=== PATIENT | male | born 1995 | race African-American/Black ===

== ENCOUNTER 2017-06-27 13:51 | Emergency (ER) | payer OTHER ==
[~2017-06-27] VITALS: Ht 180.3 cm; Wt 74.8 kg
[2017-06-27 13:54] VITALS: BP 119/73
[2017-06-27] MEDS ORDERED: levETIRAcetam 500mg/NS100ml 100 ML IVPB ONE (14:00)
[2017-06-27] MEDS ORDERED: LORazepam Inj 2mg/ml 1ml IV ONE (14:00)
--- NOTE | 2017-06-27 14:16 | Emergency Room Report ---
History of Present Illness General Chief Complaint: Seizure Source: Patient Present Illness HPI The patient was brought by patient services rep ambulance after having a witnessed seizure. This was witnessed by a roommate. There is no head trauma. Paramedics state there was mouth trauma, that occurred during the seizure. Apparently he is supposed to be taking Keppra but stopped 3-4 months ago. He just stopped taking it. He was not advised to do so. The patient denies any fevers, headache, nausea, vomiting, diarrhea, rashes, neck stiffness, joint pain, spinal pain or weakness. Paramedics state that the patient was postictal when they arrived initially, but the patient is clearing. Accu-Chek was normal in the field. Allergies: Coded Allergies: No Known Allergies (Unverified , 06/27/17) Patient History Past Medical History: see triage record Social History: Denies: smoking Social History Narrative with room mate Reviewed Nursing Documentation: PMH: Agreed, PSxH: Agreed Nursing Documentation-PMH Past Medical History: No History, Except For Hx Seizures: Yes Review of Systems All Other Systems: negative except mentioned in HPI Physical Exam Vital Signs Date Time Temp Pulse Resp B/P (MAP) Pulse Ox O2 Delivery O2 Flow Rate FiO2 06/27/17 13:44 99.0 110 20 120/67 98 Room Air Sp02 EP Interpretation: reviewed, normal General Appearance: well appearing, no apparent distress, GCS 15 Head: normocephalic Eyes: bilateral eye normal inspection, bilateral eye PERRL, bilateral eye EOMI ENT: moist mucus membranes - small tongue maceration L lateral tongue Neck: supple Respiratory: lungs clear, normal breath sounds Cardiovascular #1: regular rate, rhythm Cardiovascular #2: 2+ radial (R) Gastrointestinal: normal inspection, normal bowel sounds, non tender, no mass, non-distended Musculoskeletal: back normal, gait/station normal, normal range of motion Neurologic: alert, oriented x3, 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 The patient will be evaluated here. CT is not indicated. Chest x-ray EKG and labs are indicated. In addition the patient will receive IV and Ativan to prevent further seizures here. EKG, CXR and labs unremarkable. Patient cleared and was ambulatory. Mother here and questions answered. DMV form completed and patient advised not to drive until cleared by MD. Patient stable for outpatient observation and treatment. Laboratory Tests Test 06/27/17 14:00 06/27/17 14:10 White Blood Count 7.7 K/UL (4.8-10.8) Red Blood Count 5.34 M/UL (4.70-6.10) Hemoglobin 14.6 G/DL (14.2-18.0) Hematocrit 46.1 % (42.0-52.0) Mean Corpuscular Volume 86 FL (80-99) Mean Corpuscular Hemoglobin 27.4 PG (27.0-31.0) Mean Corpuscular Hemoglobin Concent 31.7 G/DL (32.0-36.0) L Red Cell Distribution Width 11.0 % (11.6-14.8) L Platelet Count 228 K/UL (150-450) Mean Platelet Volume 6.2 FL (6.5-10.1) L Neutrophils (%) (Auto) 57.3 % (45.0-75.0) Lymphocytes (%) (Auto) 36.2 % (20.0-45.0) Monocytes (%) (Auto) 4.6 % (1.0-10.0) Eosinophils (%) (Auto) 0.7 % (0.0-3.0) Basophils (%) (Auto) 1.2 % (0.0-2.0) Sodium Level 136 MMOL/L (136-145) Potassium Level 4.6 MMOL/L (3.5-5.1) Chloride Level 102 MMOL/L (98-107) Carbon Dioxide Level 23 MMOL/L (21-32) Anion Gap 11 mmol/L (5-15) Blood Urea Nitrogen 14 mg/dL (7-18) Creatinine 1.2 MG/DL (0.55-1.30) Estimate Glomerular Filtration Rate > 60 mL/min (>60) Glucose Level 112 MG/DL (74-106) H Calcium Level 8.8 MG/DL (8.5-10.1) Total Bilirubin 0.3 MG/DL (0.2-1.0) Aspartate Amino Transferase (AST) 16 U/L (15-37) Alanine Aminotransferase (ALT) 11 U/L (12-78) L Alkaline Phosphatase 103 U/L (46-116) Total Creatine Kinase 271 U/L (26-308) Total Protein 8.1 G/DL (6.4-8.2) Albumin 3.9 G/DL (3.4-5.0) Globulin 4.2 g/dL Albumin/Globulin Ratio 0.9 (1.0-2.7) L Serum Alcohol < 3 mg/dL Urine Color Pale yellow Urine Appearance Clear Urine pH 8 (4.5-8.0) Urine Specific [place] 1.015 (1.005-1.035) Urine Protein 1+ (NEGATIVE) H Urine Glucose (UA) Negative (NEGATIVE) Urine Ketones 1+ (NEGATIVE) H Urine Occult Blood Negative (NEGATIVE) Urine Nitrite Negative (NEGATIVE) Urine Bilirubin Negative (NEGATIVE) Urine Urobilinogen Normal MG/DL (0.0-1.0) Urine Leukocyte Esterase Negative (NEGATIVE) Urine RBC 0 /HPF (0 - 0) Urine WBC 0-2 /HPF (0 - 0) Urine Squamous Epithelial Cells Occasional /LPF Urine Bacteria None /HPF (NONE) Urine Opiates Screen Negative (NEGATIVE) Urine Barbiturates Screen Negative (NEGATIVE) Phencyclidine (PCP) Screen Negative (NEGATIVE) Urine Amphetamines Screen Negative (NEGATIVE) Urine Benzodiazepines Screen Negative (NEGATIVE) Urine Cocaine Screen Negative (NEGATIVE) Urine Marijuana (THC) Screen Negative (NEGATIVE) EKG Diagnostic Results Rate: normal Rhythm: NSR ST Segments: no acute changes Rhythm Strip Diag. Results EP Interpretation: yes Rhythm: NSR, no PVC's, no ectopy Chest X-Ray Diagnostic Results Chest X-Ray Diagnostic Results : Chest X-Ray Ordered: Yes # of Views/Limited/Complete: 1 View Indication: Other Interpretation: no consolidation, no effusion, no pneumothorax, no acute cardiopulmonary disease Impression: No acute disease Electronically Signed by: Electronically signed by Oscar Grace MD Last Vital Signs Date Time Temp Pulse Resp B/P (MAP) Pulse Ox O2 Delivery O2 Flow Rate FiO2 06/27/17 15:50 99.0 64 17 121/75 100 Room Air Status: improved Disposition: HOME, SELF-CARE Condition: Improved Scripts Levetiracetam (Keppra) 250 Mg Tablet 500 MG ORAL EVERY 12 HOURS, #60 TAB 0 Refills Prov: Oscar Grace M.D. 06/27/17 Oscar Grace M.D. Jun 27, 2017 14:15
[2017-06-27 14:30] LABS: BASOPHILS % (AUTO) 1.2 % (0.0-2.0); EOSINOPHILS % (AUTO) 0.7 % (0.0-3.0); LYMPHOCYTES % (AUTO) 36.2 % (20.0-45.0); MEAN CORPUSCULAR HEMOGLOBIN 27.4 PG (27.0-31.0); MEAN CORPUSCULAR HGB CONC 31.7 G/DL (32.0-36.0); MEAN CORPUSCULAR VOLUME 86 FL (80-99); MEAN PLATELET VOLUME 6.2 FL (6.5-10.1); MONOCYTES % (AUTO) 4.6 % (1.0-10.0); NEUTROPHILS % (AUTO) 57.3 % (45.0-75.0); PLATELET COUNT 228 K/UL (150-450); RED BLOOD COUNT 5.34 M/UL (4.70-6.10); WHITE BLOOD COUNT 7.7 K/UL (4.8-10.8)
[2017-06-27 14:38] LABS: ANION GAP 11 mmol/L (5-15); CALCIUM 8.8 MG/DL (8.5-10.1); CARBON DIOXIDE 23 MMOL/L (21-32); CHLORIDE 102 MMOL/L (98-107); CREATININE 1.2 MG/DL (0.55-1.30); GLOMERULAR FILTRATION RATE > 60 mL/min (>60); POTASSIUM 4.6 MMOL/L (3.5-5.1); SODIUM 136 MMOL/L (136-145)
[2017-06-27 14:39] LABS: APPEARANCE,URINE CLEAR; KETONES,URINE 1+ (NEGATIVE); LEUKOCYTE ESTERASE ,URINE NEGATIVE (NEGATIVE); NITRITE,URINE NEGATIVE (NEGATIVE); PH,URINE 8 (4.5-8.0); PROTEIN,URINE 1+ (NEGATIVE); UROBILINOGEN,URINE NORMAL MG/DL (0.0-1.0)
[2017-06-27 14:42] LABS: ALANINE AMINOTRANSFERASE 11 U/L (12-78); ALBUMIN/GLOBULIN RATIO 0.9 (1.0-2.7); ASPARTATE AMINO TRANSFERASE 16 U/L (15-37); TOTAL PROTEIN 8.1 G/DL (6.4-8.2)
[2017-06-27 14:43] LABS: ALCOHOL < 3 mg/dL
[2017-06-27 14:54] LABS: RBC,URINE 0 /HPF (0 - 0); SQUAMOUS EPITHELIAL CELL,UR OCCASIONAL /LPF (NONE/OCC); WBC,URINE 0-2 /HPF (0 - 0)
[2017-06-27] MEDS ORDERED: KEPPRA500 MG ORAL (15:25)
[2017-06-27 15:50] VITALS: BP 121/75
--- NOTE | 2017-06-29 10:20 | Diagnostic Imaging Report ---
Indication: Chest pain Technique: One view of the chest Comparison: none Findings: Lungs and pleural spaces are clear. Heart size is normal. Impression: No acute process
--- NOTE | 2017-06-29 17:09 | Cardiology Report ---
APPROVED REPORT EKG Measurement Heart [id number] Normal sinus rhythm with sinus arrhythmia Possible Left atrial enlargement Borderline ECG
== END 2017-06-27 16:00 | disposition home or self-care (01) ==
LOC: EDBD 13:51 → EMR 14:25
DX: R56.9 Unspecified convulsions (principal)
CPT/HCPCS: 36415; 71010; 80053; 80307; 80329; 81003; 82550; 85025; 93005; 96361; 96365; 96375; 99284; J1953